=== PATIENT | female | born 1960 | race Caucasian/White ===

== ENCOUNTER → 2022-07-05 13:14 | Outpatient (CLI) | payer OTHER, SELFPAY ==
--- NOTE | 2022-07-05 13:18 | DI.MG.S_ITS ---
BILATERAL DIGITAL SCREENING MAMMOGRAM 3D/2D WITH CAD: 07/05/2022 CLINICAL: Routine screening. Comparison is made to exams dated: 10/06/2019 mammogram, 12/11/2017 mammogram, and 08/07/2016 mammogram - outside location. There are scattered areas of fibroglandular density in both breasts (category b / 25%-50% glandular tissue). Current study was also evaluated with a Computer Aided Detection (CAD) system. No significant masses, calcifications, or other findings are seen in either breast. There has been no significant interval change. IMPRESSION: NEGATIVE There is no mammographic evidence of malignancy. A 1 year screening mammogram is recommended. Based on the Tyrer Cuzick model (a risk assessment model) the patient's lifetime risk is 9.0% and her 10 year risk is 3.5%. According to the ACR, ACS, and NCCN guidelines, an annual breast MRI exam along with mammogram is recommended if the patient's lifetime risk is 20% or greater. This exam was interpreted at Station ID: [id number]. NOTE: For mammograms, a report in lay terms will be sent to the patient. Approximately 15% of breast malignancies will not be visualized mammographically. In the management of a palpable breast mass, a negative mammogram must not discourage biopsy of a clinically suspicious lesion. Electronically Signed By: Re taylor/[email or web address]:07/05/2022 16:59:08 letter sent: Normal Exam ACR BI-RADS Category 1: Negative 3341F
== END ==
PROVIDERS: PCP Family Medicine; Referring Provider Family Medicine; Visit Provider Family Medicine
DX: Z12.31 Encounter for screening mammogram for malignant neoplasm of breast (principal)
CPT/HCPCS: 77063; 77067

== ENCOUNTER → 2023-01-24 09:55 | Outpatient (CLI) | payer OTHER, SELFPAY ==
[2023-01-24 11:20] LABS: Hematocrit 41.5 % (36-46); Hemoglobin 14.3 g/dL (12.0-16.0); Mean Corpuscular HGB Conc 34.5 % (30-36); Mean Corpuscular Hemoglobin 32.9 PG (26-34); Mean Corpuscular Volume 95.3 fL (80-100); Platelet Count 194 X10^3/uL (150-400); Red Blood Cell Count 4.36 X10^6/uL (4.0-5.2); Red Cell Distribution Width 13.5 % (11.6-14.8); White Blood Cell Count 5.7 X10^3/uL (4.5-11.0)
[2023-01-24 11:52] LABS: Alanine Aminotransferase 20 IU/L (<35); Albumin 4.4 g/dL (3.5-5.0); Albumin Globulin Ratio 1.3 (1.0-2.8); Alkaline Phosphatase 76 U/L (38-126); Aspartate Aminotransferase 27 IU/L (14-36); BUN Creatinine Ratio 28.8 (6-22); Bilirubin Total 0.4 mg/dL (0.2-1.3); Blood Urea Nitrogen 19 mg/dL (7-17); Calcium 9.3 mg/dL (8.4-10.2); Carbon Dioxide 29 mmol/L (22-32); Chloride 102 mmol/L (98-107); Cholesterol 253 mg/dL (140-199); Estimated Glomerular Filt Rate > 60 mL/min (>60); Globulin 3.3 g/dL (1.7-4.1); Glucose 97 mg/dL (80-110); HDL Cholesterol 97 mg/dL (40-60); HEMOLYSIS < 15 (0-50); LDL Cholesterol Calculated 139 mg/dL (<100); Potassium 3.6 mmol/L (3.4-5.1); Sodium 139 mmol/L (137-145); Total Protein 7.7 g/dL (6.3-8.2); Triglycerides 84 mg/dL (35-150)
[2023-01-24 12:08] LABS: Free T3, Triiodothyronine Free 4.13 pg/mL (2.77-5.27); Free T4, Direct Thyroxine 1.14 ng/dL (0.78-2.19)
[2023-01-24 12:22] LABS: Thyroid Stimulating Hormone 0.873 uIU/mL (0.47-4.68)
[2023-01-24 12:23] LABS: Vitamin D 25 Hydroxy (D3) 28.7 ng/mL (30.0-100.0)
[2023-01-25 10:37] LABS: Thyroid Peroxidase Antibodies 30 IU/mL (0-34)
== END ==
PROVIDERS: PCP Family Medicine; Referring Provider Family Medicine; Visit Provider Family Medicine
DX: D64.9 Anemia, unspecified (principal); E03.9 Hypothyroidism, unspecified; E55.9 Vitamin D deficiency, unspecified; E78.5 Hyperlipidemia, unspecified
CPT/HCPCS: 36415; 80053; 80061; 82306; 84439; 84443; 84481; 85027; 86376

== ENCOUNTER 2023-12-27 12:54 | Day surgery (SDC) | payer OTHER, MEDICAID, SELFPAY ==
--- NOTE | 2023-12-27 | PATH_ITS ---
[facility] Accession Number: [id number] No. of containers..02 Tissue . 01 Material submitted: . PART A: colon - CECAL POLYP PART B: colon - TRANSVERSE COLON POLYP . 01 Diagnosis: Part A: CECAL POLYP: Tubular adenoma. . Part B: TRANSVERSE COLON POLYP: Colonic mucosa with benign lymphoid aggregate. No neoplasm identified. STO 01/01/2024 1541 Local . 01 Electronically signed: . Terrance Diaz MD, Pathologist NPI- [id number] . 01 Gross description: . Part A: CECAL POLYP: Received in formalin is 1 fragment(s) of castro, soft tissue measuring 0.6 x 0.5 x 0.5 cm submitted entirely in 1 cassette(s) . Part B: TRANSVERSE COLON POLYP: Received in formalin is 1 fragment(s) of castro, soft tissue measuring 0.7 x 0.6 x 0.2 cm submitted entirely in 1 cassette(s) /ОЛЕГ 01/01/2024 1541 Local . 01 Pathologist provided ICD-10: D12.0, K63.89 . 01 CPT . 658932, 164374 Specimen Comment: A courtesy copy of this report has been sent to [phone] Performed at: 01 [facility] [address] [place] [address] Suite [facility], [place], [place] [id number] MD Terrance Diaz MD Phone: [phone]
[2023-12-27 13:11] VITALS: BP 156/93; PULSE 76; RESP 16; TEMP 36.8; O2SAT 98
[2023-12-27] MEDS: LACTATED RINGERS 1,000 ML 42 ML IV (13:21)
[2023-12-27] MEDS: FLEETS ENEMA 1 EACH PR (13:36)
--- NOTE | 2023-12-27 13:45 | P.HP_ITS ---
History of Present Illness History of Present Illness Date Patient Seen: 12/27/23 Time Patient Seen: 13:46 Chief complaint: Screening Colonoscopy Narrative: Diana is a 63 year old woman with a personal history of polyps as well as diverticulosis. She has an aunt who of colon cancer at a young age. [facility] Social History Smoking Status: Former smoker alcohol intake: current substance use type: marijuana (very little ) Meds Home Medications and Allergies Home Medications Medication Instructions Recorded Confirmed Type propranolol 20 mg tablet 20 mg PO BID PRN panic #60 tabs 01/24/23 12/27/23 Rx alprazolam 0.5 mg tablet (Xanax) 0.5 mg PO BID PRN fear of flying 01/26/23 12/27/23 Rx #20 tabs peg 3350-electrolytes 236 240 ml PO Q10M #4,000 mL 10/01/23 Rx gram-22.74 gram-6.74 gram-5.86 gram solution (Golytely) Allergies Allergy/AdvReac Type Severity Reaction Status Date / Time No Known Drug Allergies Allergy Verified 12/27/23 13:11 Exam Vital Signs (past 8 hours): - 12/27/23 13:11 Temperature 98.3 F Pulse Rate 76 Respiratory Rate 16 Blood Pressure 156/93 H Pulse Oximetry 98 Oxygen Delivery Method Room Air Oxygen Flow Rate 0 Oxygen Delivery Method Room Air Oxygen Flow Rate 0 Const General: No acute distress Resp Effort & Inspection: normal respiratory effort Assessment & Plan Assessment and plan (1) Personal history of colonic polyps: Status: Acute Plan We reviewed the risks and benefits of colonoscopy and she would like to proceed.
--- NOTE | 2023-12-27 15:05 | PM.OP.COLON ---
Operative Date/Time/Diagnoses Date of procedure: 12/27/23 Time of procedure: 15:05 Pre-op diagnosis: History of polyps Post-op diagnosis: same Procedure & Clinicians Study performed: Colonoscopy Same procedure as scheduled: Yes Surgeon: Yousif Batres Procedure Notes Procedure in detail: Surgeon: Yousif Batres MD Anesthesia: Benito Euceda DO Procedure: The patient was brought to the endoscopy suite, placed in left lateral decubitus position. The patient was connected to monitoring devices. A time-out was performed. Sedation was administered. Once the patient was adequately sedated, a digital rectal exam was performed and was normal. The scope was then inserted and advanced to the cecum where the appendiceal orifice was identified and photographed. The scope was then slowly withdrawn over greater than 6 minutes. The mucosa was thoroughly inspected. There was 1 cm polyp in the cecum removed with a cold snare. There was a 5 mm transverse colon polyp removed with a cold snare. No other abnormalities were found. The scope was retroflexed in the rectum. No other abnormalities were seen. The scope was straightened and removed. The patient was awakened and brought to recovery. Scope withdrawal time: 13 minutes Sedation time: 23 minutes EBL: 5 mL Findings: 1 cm cecal polyp, 5 mm transverse colon polyp Post-procedure Disposition: PACU
[2023-12-27 15:06] VITALS: BP 120/76; PULSE 66; RESP 13; TEMP 36.2; O2SAT 97
[2023-12-27 15:11] VITALS: BP 116/77; PULSE 65; RESP 16; O2SAT 95
[2023-12-27 15:17] VITALS: BP 119/85; PULSE 64; RESP 14; O2SAT 98
== END 2023-12-27 15:27 | disposition home or self-care (01) ==
PROVIDERS: PCP Family Medicine; Referring Provider Surgery; Visit Provider Surgery
PROC: 0DJD8ZZ Inspection of Lower Intestinal Tract, Via Natural or Artificial Opening Endoscopic (ICD-10-PCS; CPT 45378; principal; 2023-12-27 13:45)
DX: Z12.11 Encounter for screening for malignant neoplasm of colon (principal); Z86.010 Personal history of colon polyps; D12.0 Benign neoplasm of cecum
CPT/HCPCS: 45385; J2704

== ENCOUNTER → 2024-07-17 12:43 | Outpatient (CLI) | payer BC, SELFPAY ==
--- NOTE | 2024-07-17 12:45 | DI.MG.S_ITS ---
BILATERAL DIGITAL SCREENING MAMMOGRAM 3D/2D WITH CAD: 07/17/2024 CLINICAL: Routine screening. Comparison is made to exams dated: 07/05/2022 mammogram - [facility], 10/06/2019 mammogram, and 12/11/2017 mammogram - outside location. The breasts are heterogeneously dense, which may obscure small masses (category c / 51-75% glandular tissue). Current study was also evaluated with a Computer Aided Detection (CAD) system. No significant masses, calcifications, or other findings are seen in either breast. There has been no significant interval change. IMPRESSION: NEGATIVE There is no mammographic evidence of malignancy. A 1 year screening mammogram is recommended. Based on the Tyrer Cuzick model (a risk assessment model) the patient's lifetime risk is 12.8% and her 10 year risk is 5.4%. According to the ACR, ACS, and NCCN guidelines, an annual breast MRI exam along with mammogram is recommended if the patient's lifetime risk is 20% or greater. This exam was interpreted at Station ID: [id number]. NOTE: For mammograms, a report in lay terms will be sent to the patient. Approximately 15% of breast malignancies will not be visualized mammographically. In the management of a palpable breast mass, a negative mammogram must not discourage biopsy of a clinically suspicious lesion. Electronically Signed By: Wil [email or web address]/[email or web address]:07/17/2024 13:45:38 letter sent: Normal Exam ACR BI-RADS Category 1: Negative
== END ==
PROVIDERS: PCP Family Medicine; Referring Provider Family Medicine; Visit Provider Family Medicine
DX: Z12.31 Encounter for screening mammogram for malignant neoplasm of breast (principal); R92.333 Mammographic heterogeneous density, bilateral breasts
CPT/HCPCS: 77063; 77067